=== PATIENT | male | born 1925 | race Caucasian/White ===

== ENCOUNTER 2016-09-22 11:38 | Observation (INO) | payer MEDICARE, OTHER ==
[~2016-09-22] VITALS: Ht 167.6 cm; Wt 78.8 kg
[2016-09-22] VITALS (13 sets, daily range): BP systolic 90–148; BP diastolic 51–87; PULSE 61–67; RESP 14–19; O2SAT 93–98
[~2016-09-22 11:38] MED LIST: ASPI-973 PO; ATOR80TA PO; BRIM5DRO9 BOTH_EYES; DOCU-41 PO; HYDR-3939 PO; HYDR25TA4 PO; LATA2.5D6 BOTH_EYES; LISI10TA PO; MULT1CAP33 PO; OMEP20TA86 PO; TIMO5DRO26 BOTH_EYES
--- NOTE | 2016-09-22 12:08 | ED.REPORT ---
HPI-General Illness Date of Service Sep 22, 2016 ED Provider: Beau Zuniga MD This is an 89 year old male with a history of history of hypertension, TIA, hyperlipidemia, glaucoma, anemia, acute renal failure presenting to the emergency department after an episode of dizziness that occurred 3 hours ago upon standing up. Pt measured to be hypotensive in the 80s at that time. Dizziness resolved within seconds. Reports recent inconsistent blood pressures , has been evaluated by his storeroom supervisor, pt had a carotid doppler yesterday. Denies fever, chills, cough, nasal congestion, chest pain, SOB, change LOC, numbness or tingling, abdominal pain, nausea, vomiting, diarrhea, or constipation at this time. Nursing Notes Stated Complaint: LOW BP Chief Complaint: General Complaint Nursing Notes Reviewed: Yes Allergies: Coded Allergies: No Known Allergies (Verified Allergy, Unknown, 03/31/16) Scheduled Aspirin (Aspirin) 81 Mg Tablet 81 MG PO DAILY Atorvastatin (Lipitor) 80 Mg Tablet 80 MG PO HS Brimonidine Tartrate (Brimonidine 0.2% Oph Soln) 5 Ml Drops 1 DROP BOTH_EYES BID Hydralazine (Hydralazine) 25 Mg Tablet 25 MG PO BID Hydrochlorothiazide (Hydrochlorothiazide) 25 Mg Tablet 25 MG PO DAILY Latanoprost (Latanoprost) 2.5 Ml Drops 1 GTT BOTH_EYES HS Lisinopril (Lisinopril) 10 Mg Tablet 15 MG PO BID Multivitamin (Multivitamins) 1 Each Capsule 1 EACH PO HS Omeprazole (Omeprazole) 20 Mg Tablet.dr 20 MG PO DAILY Timolol (Betimol) 5 Ml Drops 5 ML BOTH_EYES BID Scheduled PRN Docusate Sodium (Colace) 100 Mg Capsule 200 MG PO DAILY PRN PRN For Constipation General Time Seen by : 12:00 Chief Complaint Other Hx Obtained From: Patient Arrived By: Walk-in Sudden in Onset?: Yes Onset Occurred: 1 - 4 hours ago Symptom Duration: Since onset Severity: Current: Mild Pertinent Negative: Pt denies other symptoms Recent Healthcare: No recent doctor visit, No recent hospitalization Similar Sx Previous: No Past Medical History Past Medical History 1. 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 2. History of right carotid endarterectomy and moderate, about 60% left carotid artery disease (details not available). 3. Hypertension. 4. Hyperlipidemia. 5. Glaucoma. 6. Multiple orthopedic surgeries. 7. Cataracts. 8. Appendix. 9. History of obstructive sleep apnea. 10. Hx of anemia 11. Hx of acute renal failure on chronic kidney disease, stage III Past Surgical History Appendectomy Carotid surgery, bilateral Right knee surgery Cataract surgery Shoulder surgery Glaucoma surgery Family History Noncontributory Smoking History Former Smoker Social History Alcohol Use: Denies alcohol use Drug Use: Denies drug use Other Social History: Good social support, Local resident Ambulatory Status Independent Review of Systems Full Review of Systems Constitutional: Denies: Chills, Fever Respiratory: Denies: Non-productive cough, Shortness of breath Cardiovascular: Denies: Chest pain GI: Denies: Abdominal pain, Constipation, Diarrhea, Hematochezia, Nausea, Vomiting Neurologic: Reports: Dizziness, Denies: Change LOC, Headache, Lightheaded Complete sys rev & neg: except as marked. Physical Exam Vital Signs Vital Signs Date Time Temp Pulse Resp B/P Pulse Ox O2 Delivery O2 Flow Rate FiO2 09/22/16 14:05 63 17 134/60 97 Room Air 09/22/16 14:03 64 19 128/61 96 Room Air 09/22/16 14:01 63 16 128/60 97 Room Air 09/22/16 13:38 61 17 124/59 97 Room Air 09/22/16 13:00 67 18 90/60 97 09/22/16 12:53 63 15 105/51 95 09/22/16 12:50 62 16 118/56 95 09/22/16 11:44 36.6 61 16 107/55 98 Room Air Initial VS: Reviewed Head / Eyes: Atraumatic, Normocephalic, PERRL ENT: Mucous membranes moist, Conjunctiva normal, No scleral icterus Neck: Supple, Non-tender, Full range of motion Respiratory: Breath sounds normal, Clear to auscultation, No respiratory distress Cardiovascular: Regular rate & rhythm, Heart sounds normal, Intact distal pulses Abdomen / GI: Soft, Non-tender, No guarding, No rebound, No distention Extremities: Vascular intact, Neuro intact, No swelling, No tenderness Skin: Warm, Dry, No cyanosis Neurologic: Alert, Oriented, Nonfocal Psychiatric: Mood/affect normal, Behavior normal, Normal thought content General/Constitutional: Awake, Alert, No acute distress, Well appearing Interpretation & Diagnostics Lab Results Interpretation Result Diagram: 09/22/16 1230 09/22/16 1230 Test 09/22/16 12:30 White Blood Count 5.4th/mm3 (3.8-10.1) Red Blood Count 3.16mil/mm3 (4.40-5.80) Hemoglobin 10.7g/dL (13.8-17.2) Hematocrit 32.5% (41.0-50.0) Mean Corpuscular Volume 102.8fL (81-100) Mean Corpuscular Hemoglobin 33.9pg (27.0-35.0) Mean Corpuscular Hemoglobin Concent 32.9% (32.0-37.0) Red Cell Distribution Width 12.9% (12.3-15.4) Platelet Count 120bil/L (150-400) Neutrophils (%) (Auto) 60.7% (40-74) Lymphocytes (%) (Auto) 19.1% (14-46) Monocytes (%) (Auto) 14.6% (4-12) Eosinophils (%) (Auto) 5.0% (0-5) Basophils (%) (Auto) 0.4% (0-3) Prothrombin Time 10.1sec (8.1-12.5) Prothromb Time International Ratio 0.95ratio Activated Partial Thromboplast Time 27.6sec (22.8-33.0) Sodium Level 138mEq/L (134-144) Potassium Level 4.5mEq/L (3.5-5.2) Chloride Level 100mEq/L (97-108) Carbon Dioxide Level 27mmol/L (18-29) Blood Urea Nitrogen 39mg/dL (8-27) Creatinine 1.94mg/dL (0.76-1.27) Estimat Glomerular Filtration Rate 35mL/min (>59) Glucose Level 112mg/dL (60-99) Calcium Level 8.6mg/dL (8.5-10.1) Magnesium Level 1.9mg/dL (1.6-2.6) Total Bilirubin 0.3mg/dL (0.0-1.2) Aspartate Amino Transf (AST/SGOT) 22U/L (0-50) Alanine Aminotransferase (ALT/SGPT) 18U/L (0-44) Alkaline Phosphatase 105U/L (25-160) Troponin T 0.021ug/L (0.0-0.011) Pro-B-Type Natriuretic Peptide 681.4pg/mL (0-486) Total Protein 6.7g/dL (6.4-8.4) Albumin 4.0g/dL (3.4-5.0) ECG Interpretation ECG Interpretation: paced rhythm at a rate of 60 Time: 12:41 Interpreted by: ED physician X-Ray Chest Interpretation Chest Xray Interpretation: IMPRESSION: No acute pulmonary process. Dictated by: Leonor Koo M.D. on 09/22/2016 at 13:04 Approved by: Leonor Koo M.D. on 09/22/2016 at 13:04 Re-Eval/Medical Decision Med Decision/Clinical Course 89-year-old male history of symptomatic bradycardia status post pacemaker, hypertension, hyperlipidemia presenting with episode of dizziness standing up this morning. No chest pain or other associated symptoms. Blood pressures systolics 90s at home. Orthostatic hypotension on arrival. EKG paced rhythm. Troponins 0.02. Discussed with cardiology Dr. Fuentes and we will admit for EKG and troponin trending given elevated troponins. Orthostatic hypertension possibly due to extensive blood pressure medications. Given 500 mL NS in ED. Admit for observation. Full code. Time of Eval: 13:54 Re-Evaluation/Progress Note: Re-checked, discussed lab and imaging results and need for admission, pt and family members agree with plan, all questions addressed. Consultation #1: Referral / Consult Name: Jostin Fuentes MD Consulted With: Cardiology Call Returned at: 14:27 Auto Glass Worker: Agrees with eval, Agrees with plan Note: Agrees with admission for troponin trending Consultation #2: Referral / Consult Name: Jeffry Almodovar MD Consulted With: Hospitalist Call Returned at: 14:35 Auto Glass Worker: Accepts admit Counseled Regarding: Diagnosis, Lab results, Need for follow-up, Need for admission Discharge & Departure Primary Impression: Elevated troponin Additional Impressions: Orthostatic hypotension Dizziness Disposition: ADMITTED TO HOSPITAL Discharge Condition All VS Reviewed: Yes Condition: Stable Referrals: All Lai MD (PCP) Dae Thomas MD (Family) Scribe Attestation Portions of this note were transcribed by Laz Forman. I, Dr. Zuniga personally performed the history, physical exam and medical decision-making; I reviewed and confirmed the accuracy of the information in the transcribed note. Signed by: Laz Forman, misti. 09/22/2016, 15:00. Beau Zuniga MD Sep 22, 2016 12:08 LAZ FORMAN Sep 22, 2016 12:16
[2016-09-22] MEDS ORDERED: 0.9% Sodium Chloride 1,000 ML IV ONE (12:24)
[2016-09-22 13:05] LABS: BASOPHILS % (AUTO) 0.4 % (0-3); MONOCYTES % (AUTO) 14.6 % (4-12); Mean Corpuscular Hemoglobin 33.9 pg (27.0-35.0); Mean Corpuscular Volume 102.8 fL (81-100); NEUTROPHILS % (AUTO) 60.7 % (40-74); Platelet Count 120 bil/L (150-400)
--- NOTE | 2016-09-22 13:07 | DRSVH ---
PROCEDURE: X-RAY CHEST ONE VIEW, PORTABLE ([id number]) INDICATIONS: dyspnea TECHNIQUE: One view of the chest was acquired. COMPARISON: [facility], CR, XR CHEST 2VW, 04/04/2016, 6:44. FINDINGS: Surgical changes and devices: Pacemaker. Lungs and pleura: No pleural effusions or pneumothorax. Lungs are clear. Mediastinum: Mediastinal contours appear normal. Heart size is normal. Bones and chest wall: No suspicious bony lesions. Overlying soft tissues appear unremarkable. IMPRESSION: No acute pulmonary process. Dictated by: Leonor Koo M.D. on 09/22/2016 at 13:04 Approved by: Leonor Koo M.D. on 09/22/2016 at 13:04
[2016-09-22 13:23] LABS: INR 0.95 ratio
[2016-09-22 13:31] LABS: TROPONIN T 0.021 ug/L (0.0-0.011)
[2016-09-22 13:42] LABS: Magnesium 1.9 mg/dL (1.6-2.6)
[2016-09-22] MEDS ORDERED: Alum-Mag Hydrox-Simeth 30 mL Suspension PO PRN (14:30)
[2016-09-22] MEDS ORDERED: Ondansetron 2 mg/mL 2 mL Inj IVPUSH PRN (14:30)
[2016-09-22] MEDS ORDERED: APIX2.5T PO (16:12)
[2016-09-22] MEDS ORDERED: GABA-500 PO (16:12)
[2016-09-22] MEDS ORDERED: TIMO1DRO4 AFFECT_EYE (16:12)
[2016-09-22] MEDS ORDERED: Sodium Chloride NAS 45 mL Spray NASAL ONE (16:15)
[2016-09-22] MEDS ORDERED: Sodium Chloride NAS 45 mL Spray NASAL PRN (16:15)
[2016-09-22] MEDS: Sodium Chloride LOK Flush 10 mL Syringe IVFLUSH SCH (16:30)
--- NOTE | 2016-09-22 16:30 | NUR ---
Arrival Pt arrived to floor from ED, Pt states he had a near passing out episode today that's why he is here, Pt is to have Qshift postural BP's. Pt is alert, pt is able to make his needs known.
[2016-09-22] MEDS: Brimonidine 0.2% 5 mL Ophthalmic Solution BOTH_EYES SCH (21:04)
[2016-09-22] MEDS: Timolol 0.5% 5 mL Ophthalmic Solution BOTH_EYES SCH (21:05)
--- NOTE | 2016-09-22 22:07 | PCM.HPMED ---
Subjective Date of Service Sep 22, 2016 Primary Provider: Admitting Physician: Primary Care Physician: All Lai MD Attending Physician: Chief Complaint: Dizziness upon awakening this morning HISTORY was OBTAINED FROM PATIENT / [facility] NOTES History of present illness 89-year-old man, pacemaker bradycardia 2015, stood up this morning without chest pain and experienced dizziness with home systolic blood pressure in the 80s. Patient indicates range of blood pressure readings lately, carotid Doppler performed by hall worker yesterday. No cough/URI/ abdominal pain/vomiting/diarrhea. no bloody-tarry stools. no wt gain. no recent lasix, leg swelling since change in cardiac medications at the time of pacer placement 03/2016. no prednisone. no inhaler use SOB/productive cough for 2 weeks resolving this week. ongoing sinus congestion. In the ER, orthostatic hypotension noted, standing 90/60, lying 124/59, heart rate 60s throughout, afebrile. IV fluid. He spoke to Dr. Livingston-recommended echo and aspirin. Review of Systems - none of the following - F/C/sick contact / wt change/ STEINBERG / sob / cough / cp / acid reflux / change in voiding / yeast infections / rash ambulates paresthesias of legs appear to be assoicated w/ leg edema, stocking at home forgetful per son FAMILY HX Bright disease/no CAD SOCIAL HX distant smoker MEDICATIONS Aspirin (Aspirin) 81 Mg Tablet 81 MG PO DAILY Atorvastatin (Lipitor) 80 Mg Tablet 80 MG PO HS Brimonidine Tartrate (Brimonidine 0.2% Oph Soln) 5 Ml Drops 1 DROP BOTH_EYES BID Hydralazine (Hydralazine) 25 Mg Tablet 25 MG PO BID Hydrochlorothiazide (Hydrochlorothiazide) 25 Mg Tablet 25 MG PO DAILY Latanoprost (Latanoprost) 2.5 Ml Drops 1 GTT BOTH_EYES HS Lisinopril (Lisinopril) 10 Mg Tablet 15 MG PO BID Multivitamin (Multivitamins) 1 Each Capsule 1 EACH PO HS Omeprazole (Omeprazole) 20 Mg Tablet.dr 20 MG PO DAILY Timolol (Betimol) 5 Ml Drops 5 ML BOTH_EYES BID Past Medical/Surgical HX GI bleed 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 Hyperlipidemia.heart cath around 1980, did not have significant coronary artery disease. RBBB. LVH. pacer- bradycardia. TIA November 2015. PR 40 years ago Glaucoma. Cataracts. Appendix. obstructive sleep apnea. CPAP anemia acute renal failure on chronic kidney disease, stage III, previously transfused Vasectomy/rotator cuff repair/knee replacement/appendectomy/arthritis Carotid surgery, bilateral Allergies Coded Allergies: No Known Allergies (Verified Allergy, Unknown, 03/31/16) PMH Social History Hx Alcohol Use: No Hx Substance Use: No Hx Tobacco Use: No (25 years ago) Smoking Status: Former Smoker Exam Vital Signs Vital Sign - Last Date Time Temp Pulse Resp B/P Pulse Ox O2 Delivery O2 Flow Rate FiO2 09/22/16 14:05 63 17 134/60 97 Room Air 09/22/16 11:44 36.6 Lab and Diagnostics Labs Exam on admission room air NAD A and O x 3 mood affect WNL NC/AT no icterus no injected eyes EOMI PERRL /no pharyngeal lesions/ no oral lesions / hearing intact Supple neck CTAB equal chest rise / no accessory muscle use / speaks in full sentences / no rrw RRR S1 S2 / no mrg / 2+ radial pulses Soft nt nd + BS no hepatosplenomegaly moderate edema shins, no cyanosis no ecchymosis of lower extremities No rash / no jaundice ASHTON EKG paced rhythm Trop 0.02 BNP 681 A1c 6.28 2015 B12 and folate were normal in 2013 Creatinine 1.94 No left shift UA negative nitrite negative leukocyte esterase negative yeast LFT normal INR normal Imaging PROCEDURE: X-RAY CHEST ONE VIEW, PORTABLE ([id number]) INDICATIONS: dyspnea TECHNIQUE: One view of the chest was acquired. COMPARISON: [facility], CR, XR CHEST 2VW, 04/04/2016, 6:44. FINDINGS: Surgical changes and devices: Pacemaker. Lungs and pleura: No pleural effusions or pneumothorax. Lungs are clear. Mediastinum: Mediastinal contours appear normal. Heart size is normal. Bones and chest wall: No suspicious bony lesions. Overlying soft tissues appear unremarkable. IMPRESSION: No acute pulmonary process. 03/2016 echo Interpretation Summary The left ventricle is normal in size. There is moderate-severe concentric left ventricular hypertrophy. The ejection fraction is estimated to be 60-65%. The right ventricle is normal in size and function. There is mild to moderate aortic regurgitation. The right ventricular systolic pressure is estimated at 54 mmHg assuming a right atrial pressure of 8 mm Hg. There is moderate pulmonary hypertension. The IVC is dilated (diameter is greater than 2.1 cm) yet it collapses greater than 50% with a sniff. This suggests a right atrial pressure of 8 mm Hg. Since the prior exam 08/22/2013, the LV hypertrophy appears more prominant. No other echocardiographic abnormalities seen. 09/21/2016 carotid u/s IMPRESSION: Less than 50% stenosis of the internal carotid arteries bilaterally. Result Diagram: 09/22/16 1230 09/22/16 1230 Assessment & Plan Active issues and reason for admission Orthostatic hypotension, elevated troponin, presented with dizziness. --hold hctz/lisinopril in case possible elevation trop and cleaner laboratory equipment, continue hydralazine in meanwhile w/ holding parameters --Echo/orthostatic/cortisol/TSH --if all studies are negative anticipate adjustment of lisnopril/hydralazine/ HCTZ Dr. Livingston Macrocytic anemia -- Pending B12 and folate TSH reticulocyte fecal occult Thrombocytopenia -- Pending B12 Recent bronchitis symptoms, improving, inaccurate historian --pending U strep/viral pcr resp Chronic issues known prior to admission, present on admission GI bleed Prinzmetal angina, bilateral CEAs Hypertension. Hyperlipidemia. RBBB. LVH. pacer-AV block. TIA November 2015. PR 40 years ago Glaucoma. pending surgical management next week obstructive sleep apnea. CPAP chronic kidney disease, stage III, previously transfused --resume home meds except lisinopril and HCTZ, continue hydralazine with holding parameters Diet cardiac DVT prophylaxis already eliquis Code full Disposition OBS status Assessment and plan were discussed with patient family. Jeffry Almodovar MD Sep 22, 2016 14:53
[2016-09-23] VITALS (9 sets, daily range): BP systolic 127–164; BP diastolic 49–74; PULSE 62–74; RESP 18; O2SAT 91–93
[2016-09-23] MEDS: Sodium Chloride LOK Flush 10 mL Syringe IVFLUSH SCH ×2 (00:57→10:18)
--- NOTE | 2016-09-23 05:46 | NUR ---
Blood pressure Patient states he is feeling well and has very little pain. Orthostatic bp seems to be stable. Patient up to bathroom independently and tolerates the activity well. Patient NPO since midnight. Saline locked.
[2016-09-23 06:49] LABS: Mean Corpuscular Hemoglobin 33.4 pg (27.0-35.0); Mean Corpuscular Volume 103.1 fL (81-100)
[2016-09-23] MEDS ORDERED: Pantoprazole 40 mg ER24 Tablet PO SCH (07:30)
[2016-09-23 07:35] LABS: TROPONIN T 0.018 ug/L (0.0-0.011)
[2016-09-23 07:48] LABS: Magnesium 1.7 mg/dL (1.6-2.6)
[2016-09-23] MEDS: Brimonidine 0.2% 5 mL Ophthalmic Solution BOTH_EYES SCH (10:18)
[2016-09-23] MEDS: Timolol 0.5% 5 mL Ophthalmic Solution BOTH_EYES SCH (10:18)
--- NOTE | 2016-09-23 12:18 | NUR ---
LUCILLE explained and signed, family member at bedside during explanation. Copy of ADKINS and Medicare self administered medication information given. Addendum: 09/23/16 at 1222 by MYRIAM MCKEON SS Family member and pt both aware secondary reviewer was involved to substantiate observation status. Family member unhappy it is not being billed as IP.
--- NOTE | 2016-09-23 14:27 | PCM.DIMED ---
Discharge Instructions Date of Service Sep 23, 2016 Dates of Hospitalization Sep 22, 2016 at 15:01 Discharge Diagnosis Discharge Diagnosis # Orthostatic hypotension with dizziness due to suspected dehydration due to diuretic use Please lower your hydrochlothiazide dose to 12.5 mg daily as per Dr Fuentes Medication Instructions Please lower your hydrochlorothiazide dose to 12.5 mg daily. Diet Low fat, Low Sodium, Heart Healthy Activity Limited until seen by PCP Call your provider Fever or Chills, Shortness of breath, Bleeding, Chest pain, Vomitting, Excessive diarrhea, Weakness (unilateral) Patient Instructions You were hospitalized due to dizziness due to hypotension . cause of your hypotension is unclear at this time. EKG unremarkable. Pacemaker interrogation unremarkable. Echocardiogram unremarkable. Troponin ( cardiac injury marker ) slightly elevated but unchanged from prior levels. We think that you probably had dehydration due to diuretic use. Broomcorn Seeder Dr. Fuentes recommends that you cut down dose of hydrochlorothiazide from 25 mg daily to 12.5 mg daily. Also advised to check your blood pressure frequently 2- 3 times daily for the next few days. Please follow-up with your PCP and your contract preparer in 1-2 weeks. Follow-up plan Please follow-up with PCP in 1 week. Please follow-up with your contract preparer in 1-2 weeks. Follow-up Provider: All Lai MD Follow-up with PCP in: 1 week Provider: Avery Arango MD Follow-up in: 1 week Kenrick Fink MD Sep 23, 2016 14:27
[2016-09-23] MEDS ORDERED: HYDR25TA4 PO (14:30)
--- NOTE | 2016-09-23 15:00 | NUR ---
PT eval PT eval received; pt dressed, ready to leave, and up in room upon entering; courtesy visit; quick discussion and assessement; pt able to skin care therapist max position and take challenges; steady eyes closed; steady 360; steady on level x 200 feet without device and even takes challenges and maintains balance; approp for discharge home with family
--- NOTE | 2016-09-23 15:15 | DRSVH ---
[facility] [address] [place] [address] Echocardiogram Report Name: NEO JEAN LStudy Date: 09/23/2016 Height: 66 in Hospital Exam Location: [facility] Weight: 174 lb Gender: Male BSA: 1.9 m2 : 1925 Age: 89 yrs BP: 149/74 mmHg Reason For Study: Hypotension Ordering Physician: Performed By: Nishi [facility] Interpretation Summary There is mild-moderate concentric left ventricular hypertrophy. Left ventricular systolic function is normal without focal wall motion abnormalities. The ejection fraction is estimated to be 60-65%. LVE has not changed since prior study. The right ventricle is normal in size and function. There is a pacemaker lead in the right ventricle. The right ventricular systolic pressure is estimated at 57 mmHg assuming a right atrial pressure of 3 mm Hg. Compared to the prior echo exam, there has been no change in the severity of pulmonary hypertension. The left atrium is severely dilated. Right atrial size is normal. There is mild mitral regurgitation, aortic regurgitation, and tricuspid regurgitation. There is no other significant valvular heart disease. The aortic root is normal size. Procedure: A two-dimensional transthoracic echocardiogram with color flow and Doppler was performed. The study quality was technically good. Comparison is made with the echocardiogram of 04-01-16. The patient was in normal sinus rhythm during the exam. Left Ventricle: The left ventricle is normal in size. There is mild- moderate concentric left ventricular hypertrophy. Left ventricular systolic function is normal without focal wall motion abnormalities. The ejection fraction is estimated to be 60-65%. Right Ventricle: The right ventricle is normal in size and function. There is a pacemaker lead in the right ventricle. Atria: The left atrium is severely dilated. Right atrial size is normal. There is a catheter/pacemaker lead seen in the right atrium. The interatrial septum is intact with no evidence for an atrial septal defect. Mitral Valve: The mitral valve is grossly normal. There is mild mitral regurgitation. Aortic Valve: The aortic valve is trileaflet. There is mild aortic valve sclerosis. There is mild aortic regurgitation. Tricuspid Valve: The tricuspid valve leaflets are thin and pliable. There is mild tricuspid regurgitation. The right ventricular systolic pressure is estimated at 57 mmHg assuming a right atrial pressure of 3 mm Hg. Compared to the prior echo exam, there has been no change in the severity of pulmonary hypertension. Pulmonic Valve: The pulmonic valve is normal in structure and function. There is no pulmonic valvular regurgitation. There is no other significant valvular heart disease. Great Vessels: The aortic root is normal size. The IVC is of normal diameter and collapses greater than 50% with a sniff. This suggests a low right atrial pressure of 3 mm Hg. Pericardium/ Pleura There is no pericardial effusion. There is no pleural effusion. MMode/2D Measurements & Calculations LVIDd: 4.5 cm LA dimension: 4.0 cm RA long axis Ao root diam LVIDs: 2.7 cm FS: 39.2 % LA A2 area: 27.1 cm RA area Aortic Jxn IVSd: 1.3 cm LA A4 area: 25.8 cm : 2.6 cm LVPWd: 1.0 cm LA length (vol): 5.7 cm : 16.6 cm LA vol: 104.5 ml RA vol: 47.9 ml LA vol index RA : 25.4 mm/ RVDd major IVC diam: 1.7 cm : 5.6 cm LV peres. diameter/BSA LV sys. diameter/BSA RVD1 (basal) RVD2 (mid) (cm/m^2): 2.4 (cm/m^2): 1.4 : 3.4 cm Doppler Measurements & Calculations Ao V2 max MV E max chance MV E/A: 1.1 TR max chance : 166.8 cm/sec : 86.9 cm/sec Med Peak E' Chance : 368.2 cm/sec Ao max P.1 mmHg MV A max chance TR max PG Ao mean P.6 mmHg : 75.6 cm/sec E/E' med: 14.5 : 54.2 mmHg MV P1/2t Lat Peak E' Chance PA V2 max : 59.0 msec : 96.7 cm/sec E/E' lat: 13.1 PA mean PG E/e' average PA Accel Time Pulm A Revs Dur : 0.18 sec MV A dur: 0.16 sec MV dec time: 0.20 sec MV P1/2t max chance Ao V2 mean PA V2 mean : 110.4 cm/sec : 62.8 cm/sec MVA(P1/2t) Ao V2 VTI: 39.7 cm : 3.7 cm2 Pulm A Revs Dur - MV A Dur: -0.03 msec Reading Physician:PM
--- NOTE | 2016-09-23 15:30 | NUR ---
Social Work Note: Initial Assessment/Discharge Data& Assessment: Per pt is medically improved and ready for discharge. EMR reviewed. ELGIN met with pt and pt family at bedside to discuss discharge planning, SW role explained. Royal Thomas is a 89 year old male admitted on 09/22/2016 for elevated troponin and orthostatic hypotension. Per pt is medically improved and ready to discharge home. Pt has Medicare and Health Choice insurance coverage. Pt sees All Lai MD for primary care. Pt lives in [place] with his part of the year and part of the year in [place]. Pt lives in a one story home with two steps to enter the home. Pt does not use any DME and is independent at baseline with all ADL's. Pt is currently ambulating in his room independently. Pt denies HH or SNF hx. Pt denies VA benefits or LTC insurance. Pt has DPOA paperwork completed, SW requested a copy when possible. Pt family to transport pt home today. Pt denies any other needs. No other discharge needs identified. Plan: Per Pt is medically ready to discharge home via POV. Pt family to transport pt home today. Pt denies any other needs. No other discharge needs identified. ANIYA Aquino Addendum: 09/23/16 at 1534 by KALANI VILLEGAS Amended: Links added.
--- NOTE | 2016-09-23 15:35 | NUR ---
Discharge Pt discharged at 1430 to private vehicle with son and . Pt VSS, ASHTON, A&O x 3, no c/o pain. Able to ambulate safely in room w/o c/o dizziness. Pt has discharge instructions, care notes and new rx. Pt understands s/s of when to return and all questions answered. IV removed intact and telemetry removed. Pt has all belongings.
--- NOTE | 2016-09-23 15:41 | PCM.DC.MED ---
Discharge Summary Date of Service Sep 23, 2016 Dates of Hospitalization Date of Hospital Admission Sep 22, 2016 at 15:01 Date of Discharge: Sep 23, 2016 Providers: Admitting Physician: Jeffry Almodovar MD Primary Care Physician: All Lai MD Attending Physician: Jeffry Almodovar MD Diagnosis at Time of Discharge Diagnosis at Time of Discharge # Orthostatic hypotension with dizziness due to suspected dehydration due to diuretic use Please lower your hydrochlothiazide dose to 12.5 mg daily as per Dr Fuentes Consultations cardiology Dr Fuentes Procedures ECG 12 Lead paced rhythm,no st/t wave changes Cardiac Echo Impression nterpretation Summary There is mild-moderate concentric left ventricular hypertrophy. Left ventricular systolic function is normal without focal wall motion abnormalities. The ejection fraction is estimated to be 60-65%. LVE has not changed since prior study. The right ventricle is normal in size and function. There is a pacemaker lead in the right ventricle. The right ventricular systolic pressure is estimated at 57 mmHg assuming a right atrial pressure of 3 mm Hg. Compared to the prior echo exam, there has been no change in the severity of pulmonary hypertension. The left atrium is severely dilated. Right atrial size is normal. There is mild mitral regurgitation, aortic regurgitation, and tricuspid regurgitation. There is no other significant valvular heart disease. The aortic root is normal size. Brief History as per HPI performed by Dr Almodovar on 09/22/16 History of present illness 89-year-old man, pacemaker bradycardia 2015, stood up this morning without chest pain and experienced dizziness with home systolic blood pressure in the 80s. Patient indicates range of blood pressure readings lately, carotid Doppler performed by medical delivery technician yesterday. No cough/URI/ abdominal pain/vomiting/diarrhea. no bloody-tarry stools. no wt gain. no recent lasix, leg swelling since change in cardiac medications at the time of pacer placement 03/2016. no prednisone. no inhaler use SOB/productive cough for 2 weeks resolving this week. ongoing sinus congestion. In the ER, orthostatic hypotension noted, standing 90/60, lying 124/59, heart rate 60s throughout, afebrile. IV fluid. He spoke to Dr. Livingston-recommended echo and aspirin. Hospital Course Active issues and reason for admission # Orthostatic hypotension with dizziness.acute ,poa -due to suspected dehydration due to diuretics -cause of hypotension is unclear at this time. EKG unremarkable. Pacemaker interrogation unremarkable. Echocardiogram unremarkable. Troponin slightly elevated but unchanged from prior levels. probably had dehydration due to diuretic use. Lease Attendant Dr. Fuentes recommends to lower hydrochlorothiazide from 25 mg daily to 12.5 mg daily. Also advised to check blood pressure frequently 2-3 times daily for the next few days. follow-up with PCP and medical delivery technician in 1-2 weeks. # chronic kidney disease, stage III, stable #Macrocytic anemia,chronic -- Pending B12 and folate TSH reticulocyte fecal occult.follow up results with PCP #Chronic issues known prior to admission, present on admission GI bleed Prinzmetal angina, bilateral CEAs ,Hypertension. Hyperlipidemia. RBBB. LVH. pacer-AV block. TIA November 2015. Glaucoma. pending surgical management next week obstructive sleep apnea. CPAP Disposition: Discharge home Condition on discharge stable Discussed case with his son Dr. Thomas and medical delivery technician Dr. Fuentes Exam Vital Signs (Last) Date Time Temp Pulse Resp B/P Pulse Ox O2 Delivery O2 Flow Rate FiO2 09/23/16 13:24 127/67 09/23/16 13:22 36.4 64 18 93 Room Air Exam room air NAD A and O x 3 mood affect WNL NC/AT no icterus no injected eyes EOMI PERRL /no pharyngeal lesions/ no oral lesions / hearing intact Supple neck CTAB equal chest rise / no accessory muscle use / speaks in full sentences / no rrw RRR S1 S2 / no mrg / 2+ radial pulses Soft nt nd + BS no hepatosplenomegaly moderate edema shins, no cyanosis no ecchymosis of lower extremities No rash / no jaundice Test 09/22/16 12:30 09/23/16 06:05 Neutrophils (%) (Auto) 60.7% (40-74) Lymphocytes (%) (Auto) 19.1% (14-46) Monocytes (%) (Auto) 14.6% (4-12) Eosinophils (%) (Auto) 5.0% (0-5) Basophils (%) (Auto) 0.4% (0-3) Prothrombin Time 10.1sec (8.1-12.5) Prothromb Time International Ratio 0.95ratio Activated Partial Thromboplast Time 27.6sec (22.8-33.0) Total Bilirubin 0.3mg/dL (0.0-1.2) Aspartate Amino Transf (AST/SGOT) 22U/L (0-50) Alanine Aminotransferase (ALT/SGPT) 18U/L (0-44) Alkaline Phosphatase 105U/L (25-160) Pro-B-Type Natriuretic Peptide 681.4pg/mL (0-486) Total Protein 6.7g/dL (6.4-8.4) Albumin 4.0g/dL (3.4-5.0) Thyroid Stimulating Hormone (TSH) 1.220uIU/mL (0.450-4.500) Free Thyroxine 1.00ng/dL (0.82-1.77) White Blood Count 5.5th/mm3 (3.8-10.1) Red Blood Count 2.93mil/mm3 (4.40-5.80) Hemoglobin 9.8g/dL (13.8-17.2) Hematocrit 30.2% (41.0-50.0) Mean Corpuscular Volume 103.1fL (81-100) Mean Corpuscular Hemoglobin 33.4pg (27.0-35.0) Mean Corpuscular Hemoglobin Concent 32.5% (32.0-37.0) Red Cell Distribution Width 12.8% (12.3-15.4) Platelet Count 110bil/L (150-400) Reticulocyte Count,Calculated 1.9% (0.6-2.6) Sodium Level 143mEq/L (134-144) Potassium Level 4.1mEq/L (3.5-5.2) Chloride Level 105mEq/L (97-108) Carbon Dioxide Level 28mmol/L (18-29) Blood Urea Nitrogen 37mg/dL (8-27) Creatinine 1.80mg/dL (0.76-1.27) Estimat Glomerular Filtration Rate 38mL/min (>59) Glucose Level 106mg/dL (60-99) Calcium Level 8.3mg/dL (8.5-10.1) Magnesium Level 1.7mg/dL (1.6-2.6) Troponin T 0.018ug/L (0.0-0.011) Discharge Medications Discharge Medications Apixaban (Eliquis) 2.5 Mg Tablet 2.5 MG PO BID (Reported) Atorvastatin (Lipitor) 80 Mg Tablet 80 MG PO HS (Reported) Brimonidine Tartrate (Brimonidine 0.2% Oph Soln) 5 Ml Drops 1 DROP BOTH_EYES BID (Reported) Hydralazine (Hydralazine) 25 Mg Tablet 25 MG PO BID (Reported) Hydrochlorothiazide (Hydrochlorothiazide) 25 Mg Tablet 12.5 MG PO DAILY Prescribed by: HAMILTON MEDINA MD Latanoprost (Latanoprost) 2.5 Ml Drops 1 GTT BOTH_EYES HS (Reported) Lisinopril (Lisinopril) 10 Mg Tablet 15 MG PO BID (Reported) Multivitamin (Multivitamins) 1 Each Capsule 1 EACH PO HS (Reported) Omeprazole (Omeprazole) 20 Mg Tablet.dr 20 MG PO DAILY (Reported) Timolol Maleate/Pf (Timoptic 0.5% Ocudose Drop) 1 Each Droperette 1 EACH AFFECT_ EYE BID (Reported) As needed Docusate Sodium (Colace) 100 Mg Capsule 200 MG PO DAILY PRN PRN For Constipation (Reported) Gabapentin (Gabapentin) 100 Mg Capsule 100 MG PO DAILY PRN PRN For Sleep ( Reported) Additional med instructions Please lower your hydrochlorothiazide dose to 12.5 mg daily. Followup Plan Disposition: home Follow-up plan Please follow-up with PCP in 1 week. Please follow-up with your medical delivery technician in 1-2 weeks. Discharge Diet: Low fat, Low Sodium, Heart Healthy Discharge Activity: Limited until seen by PCP Patient Instructions You were hospitalized due to dizziness due to hypotension . cause of your hypotension is unclear at this time. EKG unremarkable. Pacemaker interrogation unremarkable. Echocardiogram unremarkable. Troponin ( cardiac injury marker ) slightly elevated but unchanged from prior levels. We think that you probably had dehydration due to diuretic use. Lease Attendant Dr. Fuentes recommends that you cut down dose of hydrochlorothiazide from 25 mg daily to 12.5 mg daily. Also advised to check your blood pressure frequently 2- 3 times daily for the next few days. Please follow-up with your PCP and your medical delivery technician in 1-2 weeks. Follow-up Provider: All Lai MD Follow-up with PCP in: 1 week Provider: Camacho Ward MD Follow-up in: 1 week copies to: All Lai MD; Camacho Ward MD, Melaku MD Sep 23, 2016 15:40
--- NOTE | 2016-09-23 17:56 | PCM.CHPCAR ---
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 The patient experienced some lightheadedness or dizziness at home with systolic blood pressure running in the 80s. The patient's son gave me a call through the answering service and was concerned about his father. His son is a plastic surgeon. The patient was asked to come to the emergency room which he did and his troponin was slightly positive. However he did not have any recurrent episodes of hypotension. Because of his slightly elevated troponins he was admitted for observation. His EKGs were unremarkable but this is in the setting of ventricular pacing. The patient had an echocardiogram which shows no evidence of significant changes in comparison to his previous echocardiogram. The patient just had a carotid Doppler done prior to admission which shows stable carotid disease. His troponins were followed up which did not normalize but nor did they increase. He also had his pacemaker interrogated show no evidence of significant arrhythmia. The patient is on a pleasant 4 of high blood pressure medications. Review of Systems General: Reports: Fatigue (increased since TIA) Ears, Nose, Mouth & Throat: Reports: Any hearing loss Respiratory: Denies: Orthopnea or PND Significant dyspnea Cardiovascular: Denies: Atypical chest discomfort Chest Discomfort Gastrointestinal: Reports: Ulcers or GI blood loss (remote history of GI bleed ) Denies: Recent melena or hematochezia Genitourinary: Reports: Prostate symptoms Musculoskeletal: Reports: Significant joint or back problems Denies: Significant myalgias Neurological: Reports: Any history of stroke/TIA symptoms Psychiatric: Denies: Anxiety Depression Endocrine: Reports: Heat or cold intolerance Integumentary: Denies: Any change in hair or nails Any rash or skin lesions Hematologic/Immunologic: Reports: Recent history of anemia PMH Past Medical History Past Medical/Surgical HX GI bleed 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 Hyperlipidemia.heart cath around 1980, did not have significant coronary artery disease. RBBB. LVH. pacer- bradycardia. TIA November 2015. [place] 40 years ago Glaucoma. Cataracts. Appendix. obstructive sleep apnea. CPAP anemia acute renal failure on chronic kidney disease, stage III, previously transfused Vasectomy/rotator cuff repair/knee replacement/appendectomy/arthritis Carotid surgery, bilateral Scheduled Apixaban (Eliquis) 2.5 Mg Tablet 2.5 MG PO BID (Reported) Atorvastatin (Lipitor) 80 Mg Tablet 80 MG PO HS (Reported) Brimonidine Tartrate (Brimonidine 0.2% Oph Soln) 5 Ml Drops 1 DROP BOTH_EYES BID (Reported) Hydralazine (Hydralazine) 25 Mg Tablet 25 MG PO BID (Reported) Hydrochlorothiazide (Hydrochlorothiazide) 25 Mg Tablet 12.5 MG PO DAILY Latanoprost (Latanoprost) 2.5 Ml Drops 1 GTT BOTH_EYES HS (Reported) Lisinopril (Lisinopril) 10 Mg Tablet 15 MG PO BID (Reported) Multivitamin (Multivitamins) 1 Each Capsule 1 EACH PO HS (Reported) Omeprazole (Omeprazole) 20 Mg Tablet.dr 20 MG PO DAILY (Reported) Timolol Maleate/Pf (Timoptic 0.5% Ocudose Drop) 1 Each Droperette 1 EACH AFFECT_ EYE BID (Reported) Scheduled PRN Docusate Sodium (Colace) 100 Mg Capsule 200 MG PO DAILY PRN PRN For Constipation (Reported) Gabapentin (Gabapentin) 100 Mg Capsule 100 MG PO DAILY PRN PRN For Sleep ( Reported) Discontinued Medications Aspirin (Aspirin) 81 Mg Tablet 81 MG PO DAILY (Reported) Gabapentin (Gabapentin) 100 Mg Capsule 100 MG PO DAILY (Reported) Timolol (Betimol) 5 Ml Drops 5 ML BOTH_EYES BID (Reported) Current Inpatient Medications Current Medications Al Hydrox/Mg Hydrox/Simethicone 30 ml Q6 PRN PO; Start 09/22/16 at 14:30; Stop 09/23/16 at 17:26; Status DC Ondansetron HCl Dose range: 4 mg to 8 mg Q4H PRN IVPUSH; Start 09/22/16 at 14: 30; Stop 09/23/16 at 17:26; Status DC Acetaminophen 975 mg Q6H PRN PO; Start 09/22/16 at 14:30; Stop 09/23/16 at 17: 26; Status DC Sodium Chloride 2 spray PRN PRN NASAL; Start 09/22/16 at 16:15; Stop 09/23/16 at 17:26; Status DC Sodium Chloride 10 ml RAVI IVFLUSH Last administered on 09/23/16 10:18; Admin Dose 10 ML; Start 09/22/16 at 16:30; Stop 09/23/16 at 17:26; Status DC Acetaminophen 650 mg Q6H PRN PO; Start 09/22/16 at 16:20; Stop 09/23/16 at 17: 26; Status DC Nitroglycerin 0.4 mg Q5MIN PRN SL; Start 09/22/16 at 16:20; Stop 09/23/16 at 17 :26; Status DC Brimonidine Tartrate 1 drp BID BOTH_EYES Last administered on 09/23/16 10:18; Admin Dose 1 DRP; Start 09/22/16 at 20:30; Stop 09/23/16 at 17:26; Status DC Docusate Sodium 200 mg DAILY PRN PO; Start 09/22/16 at 16:25; Stop 09/23/16 at 17:26; Status DC Gabapentin 100 mg DAILY PRN PO Last administered on 09/22/16 23:36; Admin Dose 100 MG; Start 09/22/16 at 16:25; Stop 09/23/16 at 17:26; Status DC Hydralazine HCl 25 mg BID PO Last administered on 09/23/16 10:17; Admin Dose 25 MG; Start 09/22/16 at 20:30; Stop 09/23/16 at 17:26; Status DC Latanoprost 0.067 drop HS BOTH_EYES Last administered on 09/22/16 21:05; Admin Dose 0.067 DROP; Start 09/22/16 at 21:00; Stop 09/23/16 at 17:26; Status DC Apixaban 2.5 mg BID PO Last administered on 09/23/16 10:17; Admin Dose 2.5 MG; Start 09/22/16 at 20:30; Stop 09/23/16 at 17:26; Status DC Atorvastatin Calcium 80 mg HS PO Last administered on 09/22/16 21:06; Admin Dose 80 MG; Start 09/22/16 at 21:00; Stop 09/23/16 at 17:26; Status DC Pantoprazole 40 mg DAILYAC PO Last administered on 09/23/16 10:17; Admin Dose 40 MG; Start 09/23/16 at 07:30; Stop 09/23/16 at 17:26; Status DC Timolol Maleate 1 drop BID BOTH_EYES Last administered on 09/23/16 10:18; Admin Dose 1 DROP; Start 09/22/16 at 20:30; Stop 09/23/16 at 17:26; Status DC Allergies: Coded Allergies: No Known Allergies (Verified Allergy, Unknown, 03/31/16) Family History Family History Noncontributory Social History Hx Alcohol Use: NoHx Substance Use: NoHx Tobacco Use: No (25 years ago) Smoking Status: Former Smoker Living Arrangement: with Family Exam Vital Signs Vital Sign - Last Date Time Temp Pulse Resp B/P Pulse Ox O2 Delivery O2 Flow Rate FiO2 09/23/16 13:24 127/67 09/23/16 13:22 36.4 64 18 93 Room Air Intake and Output 09/22/16 09/22/16 09/23/16 Cumulative From/Thru 15:00 23:00 07:00 09/22/16 11:44 - 09/23/16 05:39 Intake Total 500 ml 400 ml 640 ml 1540 ml Output Total 200 ml 975 ml 1175 ml Balance 500 ml 200 ml -335 ml 365 ml Intake Oral 400 ml 640 ml 1040 ml IV Total 500 ml 500 ml Output Urine Total 200 ml 975 ml 1175 ml # Bowel Movements 0 0 General: Pleasant Cooperative Skin: Warm & dry to touch Head: Normocephalic Eye: EOMS intact Cardiac: Regular rhythm Abdomen: Soft, non-distended, non-tender Extremities: Warm w/o deformities,erythema noted Neurological: Alert & oriented Psychological: Memory grossly intact Lab and Diagnostics Labs CBC Test 09/22/16 12:30 09/23/16 06:05 Neutrophils (%) (Auto) 60.7% (40-74) Lymphocytes (%) (Auto) 19.1% (14-46) Monocytes (%) (Auto) 14.6% (4-12) Eosinophils (%) (Auto) 5.0% (0-5) Basophils (%) (Auto) 0.4% (0-3) White Blood Count 5.5th/mm3 (3.8-10.1) Red Blood Count 2.93mil/mm3 (4.40-5.80) Hemoglobin 9.8g/dL (13.8-17.2) Hematocrit 30.2% (41.0-50.0) Mean Corpuscular Volume 103.1fL (81-100) Mean Corpuscular Hemoglobin 33.4pg (27.0-35.0) Mean Corpuscular Hemoglobin Concent 32.5% (32.0-37.0) Red Cell Distribution Width 12.8% (12.3-15.4) Platelet Count 110bil/L (150-400) Reticulocyte Count,Calculated 1.9% (0.6-2.6) CMP Test 09/22/16 12:30 09/23/16 06:05 Total Bilirubin 0.3mg/dL Aspartate Amino Transf (AST/SGOT) 22U/L Alanine Aminotransferase (ALT/SGPT) 18U/L Alkaline Phosphatase 105U/L Pro-B-Type Natriuretic Peptide 681.4pg/mL Total Protein 6.7g/dL Albumin 4.0g/dL Thyroid Stimulating Hormone (TSH) 1.220uIU/mL Free Thyroxine 1.00ng/dL Sodium Level 143mEq/L Potassium Level 4.1mEq/L Chloride Level 105mEq/L Carbon Dioxide Level 28mmol/L Blood Urea Nitrogen 37mg/dL Creatinine 1.80mg/dL Estimat Glomerular Filtration Rate 38mL/min Glucose Level 106mg/dL Calcium Level 8.3mg/dL Magnesium Level 1.7mg/dL Troponin T 0.018ug/L Result Diagram: 09/23/1660409/23/16604 X-Rays, CTs and MRIs Date of Service: 09/22/16 1224 PROCEDURE: X-RAY CHEST ONE VIEW, PORTABLE ([id number]) INDICATIONS: dyspnea TECHNIQUE: One view of the chest was acquired. COMPARISON: [facility], CR, XR CHEST 2VW, 04/04/2016, 6:44. FINDINGS: Surgical changes and devices: Pacemaker. Lungs and pleura: No pleural effusions or pneumothorax. Lungs are clear. Mediastinum: Mediastinal contours appear normal. Heart size is normal. Bones and chest wall: No suspicious bony lesions. Overlying soft tissues appear unremarkable. IMPRESSION: No acute pulmonary process. Additional Diagnostics: Echocardiogram Report Name: NEO JEAN LStudy Date: 09/23/2016 Height: 66 in Hospital Exam Location: [facility] Weight: 174 lb Gender: Male BSA: 1.9 m2 : 1925 Age: 89 yrs BP: 149/74 mmHg Reason For Study: Hypotension Ordering Physician: Performed By: Nishi BarronMeadowbrook Rehabilitation HospitalIST [facility] Interpretation Summary There is mild-moderate concentric left ventricular hypertrophy. Left ventricular systolic function is normal without focal wall motion abnormalities. The ejection fraction is estimated to be 60-65%. LVE has not changed since prior study. The right ventricle is normal in size and function. There is a pacemaker lead in the right ventricle. The right ventricular systolic pressure is estimated at 57 mmHg assuming a right atrial pressure of 3 mm Hg. Compared to the prior echo exam, there has been no change in the severity of pulmonary hypertension. The left atrium is severely dilated. Right atrial size is normal. There is mild mitral regurgitation, aortic regurgitation, and tricuspid regurgitation. There is no other significant valvular heart disease. The aortic root is normal size. Assessment & Plan Problems: (1) Dizziness Plan: Symptoms are resolved. His blood pressure overall has been quite stable. We had a long discussion about his medications and about other potential causes for his transient hypotension. So far all of his studies indicate that he is not experiencing acute coronary syndrome. His pacemaker is working appropriately. His echocardiogram shows no evidence of significant changes since his last echo in March 2016. Patient appears be very comfortable at this time. Possibly he could have developed slight dehydration with his diuretic on board. We have discussed about decreasing his hydrochlorothiazide to 12.5 mg once a day. However the patient will need to continue to monitor his blood pressure closely as an outpatient. The patient's son was slight concern about his elevated troponins but he was given reassurance that he is not experiencing any evidence of acute coronary syndrome. The patient's son would like to have a repeat troponin and his setting when his father is not experiencing any acute events. He is wondering if his troponin will completely normalize. Also the patient has an upcoming eye surgery with his training and development assistant here in [place]. I have faxed a letter to their office to explain that Mr. Jean should be stable for his elective eye surgery. Otherwise he should follow-up with Dr. Ward at his next available appointment. Status: Resolved ICD Code: R42 (2) Elevated troponin Status: Chronic ICD Code: R79.89 (3) Orthostatic hypotension Status: Resolved ICD Code: I95.1 (4) Heart block Plan: Status post pacemaker. Pacemaker is working appropriately. Status: Chronic ICD Code: I45.9 Pain Evaluation: Adequate Pain Control VTE Mechanical Devices: Intermittant Pneumatic CD Resuscitation Status: Limited Interventions Time spent 60 minutes Copies to: All Lai MD; Camacho Ward MD, Oscar J MD Sep 23, 2016 17:56
== END 2016-09-23 15:00 | disposition home or self-care (01) ==
LOC: SED 11:38 → OSC 15:01
PROVIDERS: ADMIT Urology; ATTEND Urology
DX: I95.1 Orthostatic hypotension (principal); R79.89 Other specified abnormal findings of blood chemistry; R42 Dizziness and giddiness; I25.10 Atherosclerotic heart disease of native coronary artery without angina pectoris; I12.9 Hypertensive chronic kidney disease with stage 1 through stage 4 chronic kidney disease, or unspecified chronic kidney disease; N18.3 Chronic kidney disease, stage 3 (moderate); D64.9 Anemia, unspecified; E78.5 Hyperlipidemia, unspecified; Z79.82 Long term (current) use of aspirin; Z86.73 Personal history of transient ischemic attack (TIA), and cerebral infarction without residual deficits; Z79.899 Other long term (current) drug therapy
CPT/HCPCS: 36415; 71010; 80048; 80053; 82533; 82607; 82747; 83735; 83880; 84439; 84443; 84484; 85025; 85027; 85045; 85610; 85730; 87081; 93005; 96360; 99285; C8929; G0378; J7030